=== PATIENT | female | born 1930 | race Caucasian/White ===

== ENCOUNTER 2017-01-16 12:42 | Emergency (ER) | payer SELFPAY ==
[~2017-01-16] VITALS: Ht 160 cm; Wt 65.9 kg
[2017-01-16 12:49] VITALS: BP 160/64
[2017-01-16] MEDS ORDERED: CALC-1009 PO (13:33)
[2017-01-16] MEDS ORDERED: CALC-1038 PO (13:33)
[2017-01-16] MEDS ORDERED: FLUC100T PO (13:33)
[2017-01-16] MEDS ORDERED: TEMO15C TP (13:33)
[2017-01-16] MEDS ORDERED: LOSA25TA21 PO (13:33)
[2017-01-16] MEDS ORDERED: DILT60 PO (13:33)
[2017-01-16] MEDS ORDERED: HYDR25TA PO (13:33)
== END 2017-01-16 15:01 | disposition left against medical advice (07) ==
LOC: EMS 12:45
DX: R11.2 Nausea with vomiting, unspecified (principal); M54.9 Dorsalgia, unspecified; I10 Essential (primary) hypertension; Z53.21 Procedure and treatment not carried out due to patient leaving prior to being seen by health care provider

== ENCOUNTER 2017-01-18 12:14 | Inpatient (IN) | payer MEDICARE, BC ==
[~2017-01-18] VITALS: Ht 160 cm; Wt 60.1 kg
[~2017-01-18 12:14] MED LIST: CALC-1009 PO; CALC-1038 PO; DILT60 PO; FLUC100T PO; HYDR25TA PO; LOSA25TA21 PO; TEMO15C TP
[2017-01-18] MEDS ORDERED: VITAD1000 PO (12:31)
[2017-01-18] MEDS ORDERED: OMEP20 PO (12:31)
[2017-01-18 12:43] LABS: GLUCOSE,POINT OF CARE 153 MG/DL (70-110)
[2017-01-18 15:23] LABS: ADD UA MICROSCOPIC YES; APPEARANCE,URINE CLOUDY (CLEAR); GLUCOSE, URINE (UA) NEGATIVE (NEGATIVE); KETONES,URINE NEGATIVE (NEGATIVE); LEUKOCYTE ESTERASE ,URINE SMALL (NEGATIVE); OCCULT BLOOD,URINE NEGATIVE (NEGATIVE); PROTEIN,URINE NEGATIVE (NEGATIVE)
[2017-01-18 15:39] LABS: RBC,URINE None Seen /HPF (0-2); SQUAMOUS EPITHELIAL CELL,UR Few /LPF (None Seen)
[2017-01-18 16:00] LABS: ANION GAP 6 mmol/L (8-16); CALCIUM, TOTAL 9.1 mg/dL (8.8-10.5); CARBON DIOXIDE 30 mmol/L (22-29); CHLORIDE 95 mmol/L (98-107); CREATININE 0.76 mg/dL (0.60-1.30); GLOMERULAR FILTR. RATE CALC > 60 mL/min (>60); POTASSIUM 3.8 mmol/L (3.5-5.1); SODIUM SERUM 131 mmol/L (136-145); UREA NITROGEN, BLOOD 13 mg/dL (7-18)
[2017-01-18 16:09] LABS: BASOPHILS % (AUTO) 0.4 % (0.0-2.0); EOSINOPHILS % (AUTO) 0.3 % (1.0-6.0); HEMATOCRIT 22.7 % (36-46); HEMOGLOBIN 7.7 g/dL (12.0-16.0); LYMPHOCYTES # (AUTO) 1.1 K/uL (1.0-4.8); LYMPHOCYTES % (AUTO) 12.2 % (22.0-44.0); MEAN CORPUSCULAR HEMOGLOBIN 30.8 pg (26.0-34.0); MEAN CORPUSCULAR HGB CONC 33.9 G/dL (31.0-37.0); MEAN CORPUSCULAR VOLUME 91 fL (80-100); MONOCYTES # (AUTO) 0.8 K/uL (0.1-1.0); MONOCYTES % (AUTO) 9.7 % (2.0-9.0); NEUTROPHILS # (AUTO) 6.8 K/uL (1.8-7.7); NEUTROPHILS % (AUTO) 77.4 % (40.0-70.0); RED CELL DISTRIBUTION WIDTH 17.6 % (11.5-14.5); WHITE BLOOD COUNT (AUTO) 8.7 K/uL (4.5-11.0)
[2017-01-18 16:13] LABS: ALANINE AMINOTRANSFERASE 63 U/L (12-78); ALBUMIN 4.1 g/dL (3.4-5.0); ASPARTATE AMINOTRANSFERASE 35 U/L (15-37); BILIRUBIN,TOTAL 1.4 mg/dL (0.1-1.0); CREATINE KINASE, TOTAL 33 U/L (26-192); INR 1.1 (0.9-1.1); PROTHROMBIN TIME 11.4 SEC (9.4-11.6)
[2017-01-18 16:15] LABS: PLATELET COUNT (AUTO) 1095 K/uL (150-450)
[2017-01-18 16:35] LABS: RBC MORPHOLOGY COMMENT ABNORMAL RBC MORPH
[2017-01-18 16:38] LABS: B-TYPE NATRIURETIC PEPTIDE 133 pg/mL (0-100)
[2017-01-18] MEDS ORDERED: SODIUM CHLORIDE 0.9% 1,000 ML IV ONE (17:30)
[2017-01-18] MEDS ORDERED: PANTOPRAZOLE SODIUM 40 MG/VIAL IVP ONE (17:30)
[2017-01-18] MEDS ORDERED: 0.9% SODIUM CHLORIDE 10 ML SYRINGE IVP PRN (17:30)
[2017-01-18] MEDS ORDERED: HYDROCODONE/ACETAMINOPHEN 5-325 MG TABLET PO PRN (17:30)
[2017-01-18] MEDS ORDERED: ACETAMINOPHEN 325 MG TABLET PO PRN ×2 (17:30→18:15)
[2017-01-18] MEDS ORDERED: ALBUTEROL SULFATE 2.5 MG/0.5 ML NEB SOLUTION NEB PRN (18:00)
[2017-01-18] MEDS ORDERED: BISACODYL 10 MG RECTAL RECTAL SUPPOSITORY PR PRN (18:00)
[2017-01-18] MEDS ORDERED: ZOLPIDEM TARTRATE 5 MG TABLET PO PRN (18:00)
[2017-01-18] MEDS ORDERED: IPRATROPIUM BROMIDE 0.5 MG/2.5 ML NEB SOLUTION NEB PRN (18:00)
[2017-01-18] MEDS ORDERED: MORPHINE SULFATE 2 MG/ML SYRINGE IVP PRN ×2 (18:15)
[2017-01-18 18:44] VITALS: BP 124/88
[2017-01-18] MEDS ORDERED: TIMO.5OS OU (19:40)
[2017-01-18] MEDS ORDERED: COMB5OS OU (19:40)
[2017-01-18] MEDS ORDERED: TRAVZOS OU (19:40)
[2017-01-18 19:58] VITALS: BP 158/59
[2017-01-18] MEDS ORDERED: TIMOLOL MALEATE 0.5% 5 ML OPHTHALMIC SOLUTION OU SCH ×2 (21:00)
[2017-01-18] MEDS ORDERED: BRIMONIDINE/TIMOLOL 0.2-0.5% 5 ML OPHTHALMIC SOLUTION OU SCH (21:00)
[2017-01-18] MEDS: HEPARIN SODIUM,PORCINE 5,000 UNITS/ML VIAL SQ SCH (21:46)
[2017-01-18] MEDS: TRAVOPROST-Z 0.004% 2.5 ML OPHTHALMIC SOLUTION OU SCH (21:46)
[2017-01-19] VITALS (7 sets, daily range): BP systolic 129–162; BP diastolic 50–88
[2017-01-19] MEDS ORDERED: PNEUMOCOCCAL VACCINE POLYVALENT 0.5 ML VIAL [PPSV23] IM ONE (05:15)
[2017-01-19 06:36] LABS: BASOPHILS % (AUTO) 0.4 % (0.0-2.0); EOSINOPHILS % (AUTO) 0.2 % (1.0-6.0); HEMATOCRIT 21.5 % (36-46); HEMOGLOBIN 7.4 g/dL (12.0-16.0); HEMOGLOBIN A1C 3.6 % (4.5-6.2); LYMPHOCYTES # (AUTO) 0.9 K/uL (1.0-4.8); LYMPHOCYTES % (AUTO) 11.8 % (22.0-44.0); MEAN CORPUSCULAR HEMOGLOBIN 32.1 pg (26.0-34.0); MEAN CORPUSCULAR HGB CONC 34.3 G/dL (31.0-37.0); MEAN CORPUSCULAR VOLUME 94 fL (80-100); MONOCYTES # (AUTO) 0.9 K/uL (0.1-1.0); MONOCYTES % (AUTO) 11.8 % (2.0-9.0); NEUTROPHILS # (AUTO) 5.5 K/uL (1.8-7.7); NEUTROPHILS % (AUTO) 75.8 % (40.0-70.0); RED CELL DISTRIBUTION WIDTH 17.7 % (11.5-14.5); WHITE BLOOD COUNT (AUTO) 7.3 K/uL (4.5-11.0)
[2017-01-19 06:58] LABS: PLATELET COUNT (AUTO) 976 K/uL (150-450)
[2017-01-19 07:18] LABS: ALANINE AMINOTRANSFERASE 51 U/L (12-78); ALBUMIN 3.7 g/dL (3.4-5.0); ANION GAP 9 mmol/L (8-16); ASPARTATE AMINOTRANSFERASE 28 U/L (15-37); BILIRUBIN,TOTAL 1.2 mg/dL (0.1-1.0); CALCIUM, TOTAL 8.4 mg/dL (8.8-10.5); CARBON DIOXIDE 27 mmol/L (22-29); CHLORIDE 101 mmol/L (98-107); CHOL/HDL RATIO 3.1 (3.9-5.7); CREATINE KINASE, TOTAL 25 U/L (26-192); GLOMERULAR FILTR. RATE CALC > 60 mL/min (>60); POTASSIUM 3.6 mmol/L (3.5-5.1); SODIUM SERUM 137 mmol/L (136-145); TOTAL PROTEIN, SERUM 5.5 g/dL (6.4-8.2); UREA NITROGEN, BLOOD 10 mg/dL (7-18)
[2017-01-19] MEDS: HEPARIN SODIUM,PORCINE 5,000 UNITS/ML VIAL SQ SCH ×2 (08:19→20:44)
[2017-01-19] MEDS: PANTOPRAZOLE SODIUM 40 MG DR TABLET PO SCH (08:19)
[2017-01-19] MEDS: CALCIUM OYSTER SHELL 500 MG TABLET PO SCH (08:19)
[2017-01-19] MEDS: CHOLECALCIFEROL (VIT D3) 1,000 UNITS TABLET PO SCH (08:20)
[2017-01-19] MEDS: TRAVOPROST-Z 0.004% 2.5 ML OPHTHALMIC SOLUTION OU SCH ×2 (08:20→20:44)
[2017-01-19] MEDS: LOSARTAN POTASSIUM 25 MG TABLET PO SCH (08:20)
[2017-01-19 09:36] LABS: RBC MORPHOLOGY COMMENT ABNORMAL RBC MORPH
[2017-01-19 09:40] LABS: OSMOLALITY 277 mOS/kg (270-310)
[2017-01-19 10:33] LABS: PROCALCITONIN (PCT) 0.08 ng/mL (<0.50)
[2017-01-19] MEDS: DILTIAZEM HCL 60 MG TABLET PO SCH ×2 (17:02→20:47)
[2017-01-19] MEDS: TIMOLOL MALEATE 0.5% 5 ML OPHTHALMIC SOLUTION OU SCH (17:03)
[2017-01-19] MEDS: MENTHOL/CAMPHOR/DIMETH/PHENOL 10 GM OINTMENT TP PRN (17:04)
[2017-01-19] MEDS: BRIMONIDINE/TIMOLOL 0.2-0.5% 5 ML OPHTHALMIC SOLUTION OU SCH (17:04)
[2017-01-19 18:06] LABS: HEMATOCRIT 22.4 % (36-46); HEMOGLOBIN 7.6 g/dL (12.0-16.0)
[2017-01-20 04:45] VITALS: BP 155/78
[2017-01-20 07:16] VITALS: BP 161/67
[2017-01-20] MEDS: PANTOPRAZOLE SODIUM 40 MG DR TABLET PO SCH (08:20)
[2017-01-20] MEDS: LOSARTAN POTASSIUM 25 MG TABLET PO SCH (08:20)
[2017-01-20] MEDS: CALCIUM OYSTER SHELL 500 MG TABLET PO SCH (08:20)
[2017-01-20] MEDS: CHOLECALCIFEROL (VIT D3) 1,000 UNITS TABLET PO SCH (08:20)
[2017-01-20] MEDS: BRIMONIDINE/TIMOLOL 0.2-0.5% 5 ML OPHTHALMIC SOLUTION OU SCH ×2 (08:21→17:46)
[2017-01-20] MEDS: HEPARIN SODIUM,PORCINE 5,000 UNITS/ML VIAL SQ SCH (08:21)
[2017-01-20] MEDS: TIMOLOL MALEATE 0.5% 5 ML OPHTHALMIC SOLUTION OU SCH ×2 (08:22→17:46)
[2017-01-20] MEDS: DILTIAZEM HCL 60 MG TABLET PO SCH ×4 (08:23→23:23)
[2017-01-20 09:21] LABS: EOSINOPHILS # (AUTO) 0.02 K/uL (0.00-0.70); EOSINOPHILS % (AUTO) 0.21 % (1.0-6.0); HEMATOCRIT 24.2 % (36-46); LYMPHOCYTES # (AUTO) 0.7 K/uL (1.0-4.8); MEAN CORPUSCULAR HEMOGLOBIN 31.7 pg (26.0-34.0); MEAN CORPUSCULAR HGB CONC 33.2 G/dL (31.0-37.0); MEAN CORPUSCULAR VOLUME 95 fL (80-100); MONOCYTES # (AUTO) 0.7 K/uL (0.1-1.0); MONOCYTES % (AUTO) 7.9 % (2.0-9.0); NEUTROPHILS # (AUTO) 7.1 K/uL (1.8-7.7); RED BLOOD CELL COUNT(AUTO) 2.54 MIL/uL (4.00-5.20); RED CELL DISTRIBUTION WIDTH 18.8 % (11.5-14.5); WHITE BLOOD COUNT (AUTO) 8.5 K/uL (4.5-11.0)
[2017-01-20 09:24] LABS: PLATELET COUNT (AUTO) 1024 K/uL (150-450)
[2017-01-20 09:26] LABS: ANION GAP 9 mmol/L (8-16); CALCIUM, TOTAL 8.3 mg/dL (8.8-10.5); CARBON DIOXIDE 27 mmol/L (22-29); CHLORIDE 99 mmol/L (98-107); CREATININE 0.75 mg/dL (0.60-1.30); GLOMERULAR FILTR. RATE CALC > 60 mL/min (>60); POTASSIUM 4.2 mmol/L (3.5-5.1); SODIUM SERUM 135 mmol/L (136-145); UREA NITROGEN, BLOOD 9 mg/dL (7-18)
[2017-01-20 09:43] LABS: RBC MORPHOLOGY COMMENT ABNORMAL RBC MORPH
[2017-01-20] MEDS: MENTHOL/CAMPHOR/DIMETH/PHENOL 10 GM OINTMENT TP PRN ×2 (11:11→17:47)
[2017-01-20] MEDS ORDERED: DILT240C93 PO (11:49)
[2017-01-20 12:07] VITALS: BP 151/66
[2017-01-20 15:28] VITALS: BP 159/70
[2017-01-20 19:58] VITALS: BP 111/36
[2017-01-20] MEDS: TRAVOPROST-Z 0.004% 2.5 ML OPHTHALMIC SOLUTION OU SCH (22:00)
[2017-01-20 23:21] VITALS: BP 179/67
[2017-01-21] VITALS (9 sets, daily range): BP systolic 114–193; BP diastolic 52–71
[2017-01-21] MEDS ORDERED: ENALAPRILAT DIHYDRATE 1.25 MG/ML VIAL IVP ONE (08:45)
[2017-01-21] MEDS ORDERED: SODIUM CHLORIDE 0.9% 1,000 ML IV ONE ×2 (09:00→09:56)
[2017-01-21] MEDS: LOSARTAN POTASSIUM 50 MG TABLET PO SCH (09:00)
[2017-01-21 09:17] LABS: BASOPHILS % (AUTO) 0.2 % (0.0-2.0); EOSINOPHILS % (AUTO) 0.2 % (1.0-6.0); HEMATOCRIT 23.3 % (36-46); HEMOGLOBIN 7.9 g/dL (12.0-16.0); LYMPHOCYTES # (AUTO) 0.6 K/uL (1.0-4.8); LYMPHOCYTES % (AUTO) 8.2 % (22.0-44.0); MEAN CORPUSCULAR HEMOGLOBIN 31.6 pg (26.0-34.0); MEAN CORPUSCULAR HGB CONC 33.8 G/dL (31.0-37.0); MEAN CORPUSCULAR VOLUME 94 fL (80-100); MONOCYTES # (AUTO) 0.8 K/uL (0.1-1.0); MONOCYTES % (AUTO) 10.9 % (2.0-9.0); NEUTROPHILS # (AUTO) 5.9 K/uL (1.8-7.7); NEUTROPHILS % (AUTO) 80.5 % (40.0-70.0); RED BLOOD CELL COUNT(AUTO) 2.49 MIL/uL (4.00-5.20); RED CELL DISTRIBUTION WIDTH 18.8 % (11.5-14.5); WHITE BLOOD COUNT (AUTO) 7.4 K/uL (4.5-11.0)
[2017-01-21 09:23] LABS: PLATELET COUNT (AUTO) 892 K/uL (150-450)
[2017-01-21] MEDS: TRAVOPROST-Z 0.004% 2.5 ML OPHTHALMIC SOLUTION OU SCH ×2 (11:09→11:14)
[2017-01-21] MEDS: CHOLECALCIFEROL (VIT D3) 1,000 UNITS TABLET PO SCH (11:09)
[2017-01-21] MEDS: CALCIUM OYSTER SHELL 500 MG TABLET PO SCH (11:09)
[2017-01-21] MEDS: BRIMONIDINE/TIMOLOL 0.2-0.5% 5 ML OPHTHALMIC SOLUTION OU SCH ×2 (11:09→16:58)
[2017-01-21] MEDS: TIMOLOL MALEATE 0.5% 5 ML OPHTHALMIC SOLUTION OU SCH ×2 (11:09→16:58)
[2017-01-21] MEDS: PANTOPRAZOLE SODIUM 40 MG DR TABLET PO SCH (11:10)
[2017-01-21] MEDS: AmLODIPine BESYLATE 5 MG TABLET PO SCH (11:10)
[2017-01-21] MEDS: DILTIAZEM HCL 60 MG TABLET PO SCH ×3 (11:11→20:40)
[2017-01-22 04:30] VITALS: BP 156/69
[2017-01-22 07:02] LABS: ANION GAP 6 mmol/L (8-16); CALCIUM, TOTAL 8.2 mg/dL (8.8-10.5); CARBON DIOXIDE 28 mmol/L (22-29); CHLORIDE 102 mmol/L (98-107); CREATININE 0.54 mg/dL (0.60-1.30); GLOMERULAR FILTR. RATE CALC > 60 mL/min (>60); POTASSIUM 4.1 mmol/L (3.5-5.1); SODIUM SERUM 136 mmol/L (136-145); UREA NITROGEN, BLOOD 12 mg/dL (7-18)
[2017-01-22 07:21] LABS: BASOPHILS # (AUTO) 0.02 K/uL (0.00-0.20); BASOPHILS % (AUTO) 0.3 % (0.0-2.0); EOSINOPHILS # (AUTO) 0.01 K/uL (0.00-0.70); EOSINOPHILS % (AUTO) 0.18 % (1.0-6.0); HEMATOCRIT 22.2 % (36-46); HEMOGLOBIN 7.7 g/dL (12.0-16.0); LYMPHOCYTES # (AUTO) 0.7 K/uL (1.0-4.8); LYMPHOCYTES % (AUTO) 9.9 % (22.0-44.0); MEAN CORPUSCULAR HEMOGLOBIN 33.5 pg (26.0-34.0); MEAN CORPUSCULAR HGB CONC 34.6 G/dL (31.0-37.0); MEAN CORPUSCULAR VOLUME 97 fL (80-100); MONOCYTES # (AUTO) 0.8 K/uL (0.1-1.0); MONOCYTES % (AUTO) 10.1 % (2.0-9.0); NEUTROPHILS # (AUTO) 5.9 K/uL (1.8-7.7); NEUTROPHILS % (AUTO) 79.6 % (40.0-70.0); RED CELL DISTRIBUTION WIDTH 19.8 % (11.5-14.5); WHITE BLOOD COUNT (AUTO) 7.4 K/uL (4.5-11.0)
[2017-01-22 07:27] LABS: PLATELET COUNT (AUTO) 855 K/uL (150-450); RBC MORPHOLOGY COMMENT ABNORMAL RBC MORPH
[2017-01-22 07:43] VITALS: BP 143/73
[2017-01-22] MEDS: CHOLECALCIFEROL (VIT D3) 1,000 UNITS TABLET PO SCH (08:30)
[2017-01-22] MEDS: AmLODIPine BESYLATE 5 MG TABLET PO SCH (08:30)
[2017-01-22] MEDS: CALCIUM OYSTER SHELL 500 MG TABLET PO SCH (08:30)
[2017-01-22] MEDS: LOSARTAN POTASSIUM 50 MG TABLET PO SCH (08:31)
[2017-01-22] MEDS: PANTOPRAZOLE SODIUM 40 MG DR TABLET PO SCH (08:31)
[2017-01-22 10:45] VITALS: BP 163/74
[2017-01-22] MEDS: BRIMONIDINE/TIMOLOL 0.2-0.5% 5 ML OPHTHALMIC SOLUTION OU SCH (10:45)
[2017-01-22] MEDS: TIMOLOL MALEATE 0.5% 5 ML OPHTHALMIC SOLUTION OU SCH (10:45)
[2017-01-22] MEDS: DILTIAZEM HCL 60 MG TABLET PO SCH (10:45)
[2017-01-22] MEDS ORDERED: FERR-89 PO (13:08)
== END 2017-01-22 16:00 | disposition home health service (06) | DRG 206 ==
LOC: EMS 12:15 → 5N 18:01
PROVIDERS: ADMIT Internal Medicine Geriatric Medicine; ATTEND Internal Medicine Geriatric Medicine
PROC: 0DB68ZX Excision of Stomach, Via Natural or Artificial Opening Endoscopic, Diagnostic (ICD-10-PCS; principal; 2017-01-21 10:00)
DX: S22.32XA Fracture of one rib, left side, initial encounter for closed fracture (principal); N39.0 Urinary tract infection, site not specified; E87.1 Hypo-osmolality and hyponatremia; D64.9 Anemia, unspecified; I10 Essential (primary) hypertension; R79.89 Other specified abnormal findings of blood chemistry; K21.9 Gastro-esophageal reflux disease without esophagitis; E55.9 Vitamin D deficiency, unspecified; R55 Syncope and collapse; K59.00 Constipation, unspecified; H40.9 Unspecified glaucoma; R19.5 Other fecal abnormalities; Z66 Do not resuscitate; E78.5 Hyperlipidemia, unspecified; K44.9 Diaphragmatic hernia without obstruction or gangrene; K29.00 Acute gastritis without bleeding; Z85.72 Personal history of non-Hodgkin lymphomas; Z92.21 Personal history of antineoplastic chemotherapy; Z79.899 Other long term (current) drug therapy; Z88.1 Allergy status to other antibiotic agents; W19.XXXA Unspecified fall, initial encounter; Y93.89 Activity, other specified; Y92.89 Other specified places as the place of occurrence of the external cause; Y99.8 Other external cause status
CPT/HCPCS: 71101; 82270; 82271; 82306; 82607; 82746; 82962; 83036; 83540; 83550; 83735; 83930; 83935; 84145; 84300; 84439; 84443; 85014; 85018; 86850; 86900; 86901; 87086; 87147; 88305; 88312; 93005; 93306; 96374; 99285; C9113; J1644; J3490; J7030

== ENCOUNTER 2017-02-25 14:25 | Inpatient (IN) | payer MEDICARE, BC ==
[~2017-02-25] VITALS: Ht 160 cm; Wt 61.2 kg
[~2017-02-25 14:25] MED LIST changes: +COMB5OS OU; +DILT240C93 PO; -DILT60 PO; +FERR-89 PO; -FLUC100T PO; -HYDR25TA PO; +OMEP20 PO; +TIMO.5OS OU; +TRAVZOS OU; +VITAD1000 PO
[2017-02-25] MEDS ORDERED: PRED1 PO (14:35)
[2017-02-25 15:13] LABS: RETICULOCYTE % (AUTO) 15.1 % (0.5-2.3)
[2017-02-25 15:16] LABS: MEAN CORPUSCULAR HEMOGLOBIN 35.4 pg (26.0-34.0); MEAN CORPUSCULAR HGB CONC 34.7 G/dL (31.0-37.0); MEAN CORPUSCULAR VOLUME 102 fL (80-100); RED BLOOD CELL COUNT(AUTO) 1.92 MIL/uL (4.00-5.20); RED CELL DISTRIBUTION WIDTH 21.3 % (11.5-14.5)
[2017-02-25 15:20] LABS: HEMATOCRIT 19.6 % (36-46); HEMOGLOBIN 6.8 g/dL (12.0-16.0); PLATELET COUNT (AUTO) 934 K/uL (150-450)
[2017-02-25 15:23] LABS: ANION GAP 10 mmol/L (8-16); CALCIUM, TOTAL 7.7 mg/dL (8.8-10.5); CARBON DIOXIDE 24 mmol/L (22-29); CHLORIDE 95 mmol/L (98-107); CREATININE 0.71 mg/dL (0.60-1.30); GLOMERULAR FILTR. RATE CALC > 60 mL/min (>60); GLUCOSE,RANDOM 180 mg/dL (70-110); POTASSIUM 4.3 mmol/L (3.5-5.1); SODIUM SERUM 129 mmol/L (136-145); UREA NITROGEN, BLOOD 19 mg/dL (7-18)
[2017-02-25 15:27] LABS: ALANINE AMINOTRANSFERASE 59 U/L (12-78); ALBUMIN 3.7 g/dL (3.4-5.0); ALKALINE PHOSPHATASE 71 U/L (46-116); ASPARTATE AMINOTRANSFERASE 35 U/L (15-37); BILIRUBIN,TOTAL 4.9 mg/dL (0.1-1.0); TOTAL PROTEIN, SERUM 5.9 g/dL (6.4-8.2)
[2017-02-25 15:31] LABS: INR 1.1 (0.9-1.1); PROTHROMBIN TIME 12.1 SEC (9.4-11.6)
[2017-02-25 15:51] LABS: B-TYPE NATRIURETIC PEPTIDE 541 pg/mL (0-100)
[2017-02-25] MEDS ORDERED: FUROSEMIDE 40 MG/4 ML VIAL IVP ONE (16:00)
[2017-02-25 16:34] LABS: INFLUENZA TYPE A NEGATIVE FOR TYPE A (NEGATIVE); INFLUENZA TYPE B NEGATIVE FOR TYPE B (NEGATIVE)
[2017-02-25 16:49] LABS: BAND NEUTROPHILS % (MANUAL) 7 % (1-5); LYMPHOCYTES % (MANUAL) 3 % (22-44); SEGMENTED NEUTROPHILS % 90 % (40-70)
[2017-02-25] MEDS ORDERED: 0.9% SODIUM CHLORIDE 10 ML SYRINGE IVP PRN (17:15)
[2017-02-25] MEDS ORDERED: ACETAMINOPHEN 325 MG TABLET PO PRN (17:15)
[2017-02-25] MEDS ORDERED: ONDANSETRON HCL 4 MG/2 ML VIAL IVP PRN (17:15)
[2017-02-25 17:29] LABS: APPEARANCE,URINE CLOUDY (CLEAR); BILIRUBIN,URINE NEGATIVE (NEGATIVE); GLUCOSE, URINE (UA) NEGATIVE (NEGATIVE); KETONES,URINE NEGATIVE (NEGATIVE); LEUKOCYTE ESTERASE ,URINE NEGATIVE (NEGATIVE); NITRATE,URINE NEGATIVE (NEGATIVE); OCCULT BLOOD,URINE NEGATIVE (NEGATIVE); PROTEIN,URINE TRACE (NEGATIVE); UROBILINOGEN,URINE >=8.0 mg/dL (<=1.0)
[2017-02-25 17:56] LABS: RBC,URINE None Seen /HPF (0-2)
[2017-02-25 17:58] LABS: BACTERIA,URINE Few /HPF (None Seen); SQUAMOUS EPITHELIAL CELL,UR Rare /LPF (None Seen); WBC,URINE 0-2 /HPF (0-5)
[2017-02-25 17:59] LABS: TRANSITIONAL EPI CELLS,URINE Rare /LPF (None Seen)
[2017-02-25 19:08] VITALS: BP 164/74
[2017-02-25] MEDS ORDERED: CLOBETASOL 0.05% 15 GM CREAM TP PRN (19:15)
[2017-02-25] MEDS ORDERED: MAGNESIUM HYDROXIDE SUSPENSION 30 ML UDCUP PO PRN (19:30)
[2017-02-25 19:35] VITALS: BP 152/56
[2017-02-25] MEDS ORDERED: SODIUM CHLORIDE 0.9% 500 ML IV ONE (20:05)
[2017-02-25] MEDS: BRIMONIDINE/TIMOLOL 0.2-0.5% 5 ML OPHTHALMIC SOLUTION OU SCH (20:36)
[2017-02-25] MEDS: TRAVOPROST-Z 0.004% 2.5 ML OPHTHALMIC SOLUTION OU SCH (20:36)
[2017-02-25] MEDS: TIMOLOL MALEATE 0.5% 5 ML OPHTHALMIC SOLUTION OU SCH (20:36)
[2017-02-25] MEDS: CefTRIAXone 1 GM/DEXTROSE 50 ML IV SCH (21:49)
[2017-02-25] MEDS: AZITHROMYCIN 500 MG/NS 250 ML IV SCH (22:49)
[2017-02-25 23:33] VITALS: BP 148/80
[2017-02-26] VITALS (14 sets, daily range): BP systolic 141–171; BP diastolic 50–96
[2017-02-26] MEDS: DILTIAZEM HCL CD 240 MG ER CAPSULE PO SCH ×2 (05:11→05:14)
[2017-02-26] MEDS: ALBUTEROL SULFATE 2.5 MG/0.5 ML NEB SOLUTION NEB PRN ×2 (05:43→09:58)
[2017-02-26] MEDS: IPRATROPIUM BROMIDE 0.5 MG/2.5 ML NEB SOLUTION NEB PRN ×2 (05:43→09:58)
[2017-02-26 06:36] LABS: EOSINOPHILS # (AUTO) 0.01 K/uL (0.00-0.70); EOSINOPHILS % (AUTO) 0.05 % (1.0-6.0); HEMOGLOBIN 8.1 g/dL (12.0-16.0); LYMPHOCYTES # (AUTO) 0.4 K/uL (1.0-4.8); LYMPHOCYTES % (AUTO) 2.9 % (22.0-44.0); MEAN CORPUSCULAR HEMOGLOBIN 35.5 pg (26.0-34.0); MEAN CORPUSCULAR HGB CONC 33.8 G/dL (31.0-37.0); MEAN CORPUSCULAR VOLUME 105 fL (80-100); MONOCYTES # (AUTO) 1.3 K/uL (0.1-1.0); MONOCYTES % (AUTO) 10.7 % (2.0-9.0); NEUTROPHILS # (AUTO) 10.2 K/uL (1.8-7.7); RED BLOOD CELL COUNT(AUTO) 2.29 MIL/uL (4.00-5.20); RED CELL DISTRIBUTION WIDTH 19.9 % (11.5-14.5)
[2017-02-26 07:03] LABS: NEUTROPHILS % (AUTO) 86.4 % (40.0-70.0); PLATELET COUNT (AUTO) 936 K/uL (150-450)
[2017-02-26 07:21] LABS: ANION GAP 11 mmol/L (8-16); CALCIUM, TOTAL 7.6 mg/dL (8.8-10.5); CARBON DIOXIDE 25 mmol/L (22-29); CHLORIDE 97 mmol/L (98-107); CHOL/HDL RATIO 2.4 (3.9-5.7); CHOLESTEROL 106 mg/dL (131-200); CREATINE KINASE, TOTAL 20 U/L (26-192); CREATININE 0.69 mg/dL (0.60-1.30); GLOMERULAR FILTR. RATE CALC > 60 mL/min (>60); GLUCOSE,RANDOM 111 mg/dL (70-110); HDL CHOLESTEROL 44 mg/dL (40-60); LDL CHOL (CALC.) 46 mg/dL (0-130); POTASSIUM 3.3 mmol/L (3.5-5.1); SODIUM SERUM 133 mmol/L (136-145); THYROID STIMULATING HORMONE 0.36 uIU/mL (0.36-3.74); TRIGLYCERIDES 78 mg/dL (15-150); UREA NITROGEN, BLOOD 17 mg/dL (7-18)
[2017-02-26] MEDS ORDERED: FERROUS SULFATE 325 MG EC TABLET PO SCH (08:00)
[2017-02-26] MEDS: TIMOLOL MALEATE 0.5% 5 ML OPHTHALMIC SOLUTION OU SCH ×2 (08:03→20:10)
[2017-02-26] MEDS: TRAVOPROST-Z 0.004% 2.5 ML OPHTHALMIC SOLUTION OU SCH ×2 (08:03→20:10)
[2017-02-26] MEDS: CALCIUM OYSTER SHELL 500 MG TABLET PO SCH (08:04)
[2017-02-26] MEDS: LOSARTAN POTASSIUM 25 MG TABLET PO SCH (08:04)
[2017-02-26] MEDS: PANTOPRAZOLE SODIUM 40 MG DR TABLET PO SCH (08:04)
[2017-02-26] MEDS: CHOLECALCIFEROL (VIT D3) 1,000 UNITS TABLET PO SCH (08:05)
[2017-02-26] MEDS ORDERED: POTASSIUM CHLORIDE 20 MEQ ER TABLET PO ONE (08:30)
[2017-02-26] MEDS ORDERED: CLOBETASOL 0.05% 15 GM CREAM TP SCH (09:00)
[2017-02-26 09:07] LABS: FOLATE SERUM 19.7 ng/mL (5.4-)
[2017-02-26] MEDS: PredniSONE 20 MG TABLET PO SCH (09:09)
[2017-02-26] MEDS ORDERED: POTASSIUM CHLORIDE 10% 40 MEQ/30 ML LIQUID UDCUP PO ONE (11:15)
[2017-02-26] MEDS: FUROSEMIDE 20 MG TABLET PO SCH (11:36)
[2017-02-26 13:09] LABS: HEMOGLOBIN A1C < 3.6 % (4.5-6.2)
[2017-02-26] MEDS ORDERED: IOVERSOL 350 MG/ML 100 ML VIAL ONE (13:32)
[2017-02-26] MEDS: BENZONATATE 100 MG CAPSULE PO SCH ×2 (14:09→20:10)
[2017-02-26 14:38] LABS: PROTEIN,URINE RANDOM 64 mg/dL (0-11.9); SODIUM,URINE RANDOM 56 mmol/l (20-110); UREA NITROGEN,URINE RANDOM 731 mg/dL (350-1000)
[2017-02-26 14:41] LABS: OSMOLALITY,URINE 456 mOS/kg (50-1200)
[2017-02-26] MEDS: GuaiFENesin [SUGAR-FREE] 200 MG/10 ML SOLUTION UDCUP PO SCH ×2 (15:21→20:10)
[2017-02-26] MEDS ORDERED: HEPARIN SODIUM,PORCINE 5,000 UNITS/ML VIAL IVP PRN (16:00)
[2017-02-26] MEDS: HEPARIN SODIUM 25000 UNITS/D5W 250 ML IV PRN ×2 (16:30→23:34)
[2017-02-26 16:40] LABS: EOSINOPHILS % (AUTO) 0 % (1.0-6.0); HEMATOCRIT 23.1 % (36-46); HEMOGLOBIN 7.9 g/dL (12.0-16.0); LYMPHOCYTES # (AUTO) 0.2 K/uL (1.0-4.8); LYMPHOCYTES % (AUTO) 1.4 % (22.0-44.0); MEAN CORPUSCULAR HEMOGLOBIN 37.2 pg (26.0-34.0); MEAN CORPUSCULAR HGB CONC 34.3 G/dL (31.0-37.0); MEAN CORPUSCULAR VOLUME 109 fL (80-100); MONOCYTES # (AUTO) 0.8 K/uL (0.1-1.0); MONOCYTES % (AUTO) 6.7 % (2.0-9.0); NEUTROPHILS # (AUTO) 10.5 K/uL (1.8-7.7); RED BLOOD CELL COUNT(AUTO) 2.13 MIL/uL (4.00-5.20); RED CELL DISTRIBUTION WIDTH 19.8 % (11.5-14.5)
[2017-02-26 16:41] LABS: INR 1.2 (0.9-1.1); PROTHROMBIN TIME 12.5 SEC (9.4-11.6)
[2017-02-26 16:48] LABS: PLATELET COUNT (AUTO) 867 K/uL (150-450)
[2017-02-26] MEDS: BRIMONIDINE/TIMOLOL 0.2-0.5% 5 ML OPHTHALMIC SOLUTION OU SCH (20:10)
[2017-02-26] MEDS: CefTRIAXone 1 GM/DEXTROSE 50 ML IV SCH (20:10)
[2017-02-26] MEDS: AZITHROMYCIN 500 MG/NS 250 ML IV SCH (21:27)
[2017-02-26] MEDS: HEPARIN SODIUM,PORCINE 5,000 UNITS/ML VIAL IVP PRN (23:31)
[2017-02-27] VITALS (7 sets, daily range): BP systolic 136–156; BP diastolic 58–86
[2017-02-27] MEDS ORDERED: SODIUM CHLORIDE 0.9% 250 ML IV ONE (03:12)
[2017-02-27 06:23] LABS: ANION GAP 6 mmol/L (8-16); CALCIUM, TOTAL 7.7 mg/dL (8.8-10.5); CARBON DIOXIDE 29 mmol/L (22-29); CHLORIDE 101 mmol/L (98-107); CREATININE 0.63 mg/dL (0.60-1.30); GLOMERULAR FILTR. RATE CALC > 60 mL/min (>60); GLUCOSE,RANDOM 113 mg/dL (70-110); POTASSIUM 3.7 mmol/L (3.5-5.1); SODIUM SERUM 136 mmol/L (136-145); UREA NITROGEN, BLOOD 21 mg/dL (7-18)
[2017-02-27 07:01] LABS: D-DIMER 1.42 mg/L FEU (0.00-0.50); HEMOGLOBIN 7.2 g/dL (12.0-16.0); MEAN CORPUSCULAR HEMOGLOBIN 36.7 pg (26.0-34.0); MEAN CORPUSCULAR HGB CONC 34.5 G/dL (31.0-37.0); MEAN CORPUSCULAR VOLUME 107 fL (80-100); RED BLOOD CELL COUNT(AUTO) 1.95 MIL/uL (4.00-5.20); RED CELL DISTRIBUTION WIDTH 20.6 % (11.5-14.5)
[2017-02-27 07:11] LABS: HEMATOCRIT 20.8 % (36-46); PLATELET COUNT (AUTO) 781 K/uL (150-450)
[2017-02-27 07:35] LABS: B-TYPE NATRIURETIC PEPTIDE 269 pg/mL (0-100)
[2017-02-27] MEDS: HEPARIN SODIUM,PORCINE 5,000 UNITS/ML VIAL IVP PRN ×2 (07:37→14:19)
[2017-02-27] MEDS: HEPARIN SODIUM 25000 UNITS/D5W 250 ML IV PRN ×3 (07:38→14:22)
[2017-02-27] MEDS: OXYGEN THERAPY IH SCH ×2 (08:47→20:24)
[2017-02-27] MEDS: TIMOLOL MALEATE 0.5% 5 ML OPHTHALMIC SOLUTION OU SCH ×2 (08:49→20:38)
[2017-02-27] MEDS: DILTIAZEM HCL CD 240 MG ER CAPSULE PO SCH (08:49)
[2017-02-27] MEDS: TRAVOPROST-Z 0.004% 2.5 ML OPHTHALMIC SOLUTION OU SCH ×2 (08:49→20:37)
[2017-02-27] MEDS: PANTOPRAZOLE SODIUM 40 MG DR TABLET PO SCH (08:50)
[2017-02-27] MEDS: FUROSEMIDE 20 MG TABLET PO SCH (08:50)
[2017-02-27] MEDS: PredniSONE 20 MG TABLET PO SCH (08:50)
[2017-02-27] MEDS: CALCIUM OYSTER SHELL 500 MG TABLET PO SCH (08:50)
[2017-02-27] MEDS: LOSARTAN POTASSIUM 25 MG TABLET PO SCH (08:50)
[2017-02-27] MEDS: GuaiFENesin [SUGAR-FREE] 200 MG/10 ML SOLUTION UDCUP PO SCH ×3 (08:51→20:36)
[2017-02-27] MEDS: BENZONATATE 100 MG CAPSULE PO SCH ×3 (08:51→20:36)
[2017-02-27] MEDS: CHOLECALCIFEROL (VIT D3) 1,000 UNITS TABLET PO SCH (08:51)
[2017-02-27 09:31] LABS: BAND NEUTROPHILS % (MANUAL) 16 % (1-5); LYMPHOCYTES % (MANUAL) 3 % (22-44); MONOCYTES % (MANUAL) 5 % (2-9); SEGMENTED NEUTROPHILS % 76 % (40-70)
[2017-02-27] MEDS ORDERED: POTASSIUM CHLORIDE 10% 40 MEQ/30 ML LIQUID UDCUP PO ONE (10:45)
[2017-02-27] MEDS ORDERED: PRED20 PO (10:49)
[2017-02-27] MEDS: CefTRIAXone 1 GM/DEXTROSE 50 ML IV SCH (20:24)
[2017-02-27] MEDS: BRIMONIDINE/TIMOLOL 0.2-0.5% 5 ML OPHTHALMIC SOLUTION OU SCH (20:38)
[2017-02-27] MEDS: AZITHROMYCIN 500 MG/NS 250 ML IV SCH (22:02)
[2017-02-27] MEDS: ZOLPIDEM TARTRATE 5 MG TABLET PO PRN (23:26)
[2017-02-28 05:47] VITALS: BP 150/60
[2017-02-28 06:41] LABS: EOSINOPHILS % (AUTO) 0.1 % (1.0-6.0); HEMATOCRIT 21.5 % (36-46); HEMOGLOBIN 7.2 g/dL (12.0-16.0); LYMPHOCYTES # (AUTO) 0.6 K/uL (1.0-4.8); LYMPHOCYTES % (AUTO) 4.5 % (22.0-44.0); MEAN CORPUSCULAR HGB CONC 33.6 G/dL (31.0-37.0); MEAN CORPUSCULAR VOLUME 104 fL (80-100); MONOCYTES # (AUTO) 1.1 K/uL (0.1-1.0); MONOCYTES % (AUTO) 8.4 % (2.0-9.0); NEUTROPHILS # (AUTO) 11.5 K/uL (1.8-7.7); RED BLOOD CELL COUNT(AUTO) 2.07 MIL/uL (4.00-5.20); RED CELL DISTRIBUTION WIDTH 19.9 % (11.5-14.5); RETICULOCYTE % (AUTO) 6.1 % (0.5-2.3)
[2017-02-28 06:55] LABS: ALANINE AMINOTRANSFERASE 63 U/L (12-78); ALBUMIN 3.1 g/dL (3.4-5.0); ALKALINE PHOSPHATASE 64 U/L (46-116); ANION GAP 5 mmol/L (8-16); ASPARTATE AMINOTRANSFERASE 25 U/L (15-37); BILIRUBIN,TOTAL 1.5 mg/dL (0.1-1.0); CALCIUM, TOTAL 7.6 mg/dL (8.8-10.5); CARBON DIOXIDE 29 mmol/L (22-29); CHLORIDE 103 mmol/L (98-107); CREATININE 0.63 mg/dL (0.60-1.30); GLOMERULAR FILTR. RATE CALC > 60 mL/min (>60); GLUCOSE,RANDOM 104 mg/dL (70-110); POTASSIUM 4.3 mmol/L (3.5-5.1); SODIUM SERUM 137 mmol/L (136-145); TOTAL PROTEIN, SERUM 5.6 g/dL (6.4-8.2); UREA NITROGEN, BLOOD 19 mg/dL (7-18)
[2017-02-28 07:13] VITALS: BP 145/57
[2017-02-28 07:22] LABS: PLATELET COUNT (AUTO) 851 K/uL (150-450)
[2017-02-28] MEDS: HEPARIN SODIUM 25000 UNITS/D5W 250 ML IV PRN ×2 (07:33→17:15)
[2017-02-28] MEDS: OXYGEN THERAPY IH SCH ×2 (08:39→20:55)
[2017-02-28] MEDS: PredniSONE 20 MG TABLET PO SCH (08:49)
[2017-02-28] MEDS: BENZONATATE 100 MG CAPSULE PO SCH ×3 (08:50→20:56)
[2017-02-28] MEDS: CHOLECALCIFEROL (VIT D3) 1,000 UNITS TABLET PO SCH (08:50)
[2017-02-28] MEDS: PANTOPRAZOLE SODIUM 40 MG DR TABLET PO SCH (08:51)
[2017-02-28] MEDS: FUROSEMIDE 20 MG TABLET PO SCH (08:51)
[2017-02-28] MEDS: TIMOLOL MALEATE 0.5% 5 ML OPHTHALMIC SOLUTION OU SCH ×2 (08:52→20:57)
[2017-02-28] MEDS: GuaiFENesin [SUGAR-FREE] 200 MG/10 ML SOLUTION UDCUP PO SCH ×3 (08:52→20:56)
[2017-02-28] MEDS: CALCIUM OYSTER SHELL 500 MG TABLET PO SCH (08:54)
[2017-02-28] MEDS: DILTIAZEM HCL CD 240 MG ER CAPSULE PO SCH (08:54)
[2017-02-28] MEDS: LOSARTAN POTASSIUM 25 MG TABLET PO SCH (08:55)
[2017-02-28] MEDS: TRAVOPROST-Z 0.004% 2.5 ML OPHTHALMIC SOLUTION OU SCH ×2 (09:00→20:57)
[2017-02-28 10:25] LABS: PLATELET MORPHOLOGY COMMENT GIANT PLTS PRESENT
[2017-02-28 11:02] VITALS: BP 153/73
[2017-02-28] MEDS: ACETAMINOPHEN 325 MG TABLET PO PRN (12:22)
[2017-02-28] MEDS: PROMETHAZINE HCL/CODEINE 6.25-10MG/5ML SYRUP UDCUP PO PRN ×2 (13:06→20:56)
[2017-02-28 16:29] VITALS: BP 143/56
[2017-02-28 19:39] VITALS: BP 151/86
[2017-02-28] MEDS: ZOLPIDEM TARTRATE 5 MG TABLET PO PRN (20:56)
[2017-02-28] MEDS: CefTRIAXone 1 GM/DEXTROSE 50 ML IV SCH (20:56)
[2017-02-28] MEDS: BRIMONIDINE/TIMOLOL 0.2-0.5% 5 ML OPHTHALMIC SOLUTION OU SCH (20:57)
[2017-02-28] MEDS: AZITHROMYCIN 500 MG/NS 250 ML IV SCH (22:30)
[2017-02-28 23:48] VITALS: BP 141/65
[2017-03-01] VITALS (12 sets, daily range): BP systolic 111–166; BP diastolic 52–85
[2017-03-01] MEDS: HEPARIN SODIUM 25000 UNITS/D5W 250 ML IV PRN (01:58)
[2017-03-01 06:49] LABS: BASOPHILS % (AUTO) 0.1 % (0.0-2.0); EOSINOPHILS % (AUTO) 0.05 % (1.0-6.0); LYMPHOCYTES # (AUTO) 0.5 K/uL (1.0-4.8); LYMPHOCYTES % (AUTO) 6.2 % (22.0-44.0); MEAN CORPUSCULAR HEMOGLOBIN 36.7 pg (26.0-34.0); MEAN CORPUSCULAR HGB CONC 34.2 G/dL (31.0-37.0); MEAN CORPUSCULAR VOLUME 107 fL (80-100); MONOCYTES # (AUTO) 0.7 K/uL (0.1-1.0); MONOCYTES % (AUTO) 8.3 % (2.0-9.0); NEUTROPHILS # (AUTO) 6.9 K/uL (1.8-7.7); PLATELET COUNT (AUTO) 657 K/uL (150-450); RED BLOOD CELL COUNT(AUTO) 1.87 MIL/uL (4.00-5.20); RED CELL DISTRIBUTION WIDTH 19.8 % (11.5-14.5)
[2017-03-01 06:54] LABS: ANION GAP 5 mmol/L (8-16); CALCIUM, TOTAL 7.5 mg/dL (8.8-10.5); CARBON DIOXIDE 29 mmol/L (22-29); CHLORIDE 101 mmol/L (98-107); CREATININE 0.59 mg/dL (0.60-1.30); GLOMERULAR FILTR. RATE CALC > 60 mL/min (>60); GLUCOSE,RANDOM 96 mg/dL (70-110); POTASSIUM 3.8 mmol/L (3.5-5.1); SODIUM SERUM 135 mmol/L (136-145); UREA NITROGEN, BLOOD 15 mg/dL (7-18)
[2017-03-01 07:13] LABS: HEMATOCRIT 20.1 % (36-46); HEMOGLOBIN 6.9 g/dL (12.0-16.0); NEUTROPHILS % (AUTO) 85.4 % (40.0-70.0)
[2017-03-01] MEDS: OXYGEN THERAPY IH SCH ×2 (07:57→20:45)
[2017-03-01] MEDS: PANTOPRAZOLE SODIUM 40 MG DR TABLET PO SCH (07:58)
[2017-03-01] MEDS: PredniSONE 20 MG TABLET PO SCH (07:58)
[2017-03-01] MEDS: CALCIUM OYSTER SHELL 500 MG TABLET PO SCH (07:58)
[2017-03-01] MEDS: TIMOLOL MALEATE 0.5% 5 ML OPHTHALMIC SOLUTION OU SCH ×2 (07:58→20:48)
[2017-03-01] MEDS: GuaiFENesin [SUGAR-FREE] 200 MG/10 ML SOLUTION UDCUP PO SCH ×3 (07:59→20:46)
[2017-03-01] MEDS: CHOLECALCIFEROL (VIT D3) 1,000 UNITS TABLET PO SCH (07:59)
[2017-03-01] MEDS: BENZONATATE 100 MG CAPSULE PO SCH ×3 (07:59→20:45)
[2017-03-01] MEDS: DILTIAZEM HCL CD 240 MG ER CAPSULE PO SCH (08:00)
[2017-03-01] MEDS: LOSARTAN POTASSIUM 25 MG TABLET PO SCH (08:00)
[2017-03-01] MEDS: BRIMONIDINE/TIMOLOL 0.2-0.5% 5 ML OPHTHALMIC SOLUTION OU SCH ×2 (08:02→20:48)
[2017-03-01] MEDS: APIXABAN 5 MG TABLET PO SCH ×2 (09:31→20:45)
[2017-03-01] MEDS ORDERED: SODIUM CHLORIDE 0.9% 250 ML IV ONE (12:56)
[2017-03-01] MEDS: SODIUM CHLORIDE 1 GM TABLET PO SCH (15:21)
[2017-03-01] MEDS: BISACODYL 10 MG RECTAL RECTAL SUPPOSITORY PR PRN (18:56)
[2017-03-01] MEDS: ZOLPIDEM TARTRATE 5 MG TABLET PO PRN (20:46)
[2017-03-01] MEDS: PROMETHAZINE HCL/CODEINE 6.25-10MG/5ML SYRUP UDCUP PO PRN (20:46)
[2017-03-01] MEDS: CefTRIAXone 1 GM/DEXTROSE 50 ML IV SCH (20:48)
[2017-03-01] MEDS: TRAVOPROST-Z 0.004% 2.5 ML OPHTHALMIC SOLUTION OU SCH (20:48)
[2017-03-01] MEDS: AZITHROMYCIN 500 MG/NS 250 ML IV SCH (22:15)
[2017-03-02] VITALS (13 sets, daily range): BP systolic 148–214; BP diastolic 50–91
[2017-03-02] MEDS: HEPARIN SODIUM 25000 UNITS/D5W 250 ML IV PRN (00:01)
[2017-03-02] MEDS: DILTIAZEM HCL CD 240 MG ER CAPSULE PO SCH (05:10)
[2017-03-02] MEDS: LOSARTAN POTASSIUM 25 MG TABLET PO SCH (06:57)
[2017-03-02 07:15] LABS: ANION GAP 7 mmol/L (8-16); CALCIUM, TOTAL 7.8 mg/dL (8.8-10.5); CARBON DIOXIDE 30 mmol/L (22-29); CHLORIDE 101 mmol/L (98-107); CREATININE 0.58 mg/dL (0.60-1.30); GLOMERULAR FILTR. RATE CALC > 60 mL/min (>60); GLUCOSE,RANDOM 115 mg/dL (70-110); SODIUM SERUM 138 mmol/L (136-145); UREA NITROGEN, BLOOD 12 mg/dL (7-18)
[2017-03-02] MEDS: HydrALAZINE HCL 20 MG/ML VIAL IVP PRN ×2 (08:49→15:31)
[2017-03-02] MEDS: CHOLECALCIFEROL (VIT D3) 1,000 UNITS TABLET PO SCH (08:52)
[2017-03-02] MEDS: FUROSEMIDE 20 MG TABLET PO SCH (08:52)
[2017-03-02] MEDS: GuaiFENesin [SUGAR-FREE] 200 MG/10 ML SOLUTION UDCUP PO SCH ×3 (08:53→20:11)
[2017-03-02] MEDS: BENZONATATE 100 MG CAPSULE PO SCH ×3 (08:53→20:10)
[2017-03-02] MEDS: SODIUM CHLORIDE 1 GM TABLET PO SCH (08:53)
[2017-03-02] MEDS: PANTOPRAZOLE SODIUM 40 MG DR TABLET PO SCH (08:53)
[2017-03-02] MEDS: APIXABAN 5 MG TABLET PO SCH ×2 (08:54→20:11)
[2017-03-02] MEDS: CALCIUM OYSTER SHELL 500 MG TABLET PO SCH (08:54)
[2017-03-02] MEDS: BRIMONIDINE/TIMOLOL 0.2-0.5% 5 ML OPHTHALMIC SOLUTION OU SCH ×2 (08:56→20:11)
[2017-03-02] MEDS: TIMOLOL MALEATE 0.5% 5 ML OPHTHALMIC SOLUTION OU SCH ×2 (08:56→20:11)
[2017-03-02] MEDS: OXYGEN THERAPY IH SCH ×2 (08:56→20:13)
[2017-03-02] MEDS: PredniSONE 20 MG TABLET PO SCH (08:59)
[2017-03-02 09:39] LABS: BASOPHILS % (AUTO) 0.1 % (0.0-2.0); EOSINOPHILS % (AUTO) 0 % (1.0-6.0); HEMOGLOBIN 9.1 g/dL (12.0-16.0); LYMPHOCYTES # (AUTO) 0.5 K/uL (1.0-4.8); LYMPHOCYTES % (AUTO) 4.6 % (22.0-44.0); MEAN CORPUSCULAR HEMOGLOBIN 35.5 pg (26.0-34.0); MEAN CORPUSCULAR HGB CONC 35.2 G/dL (31.0-37.0); MEAN CORPUSCULAR VOLUME 101 fL (80-100); MONOCYTES % (AUTO) 9.8 % (2.0-9.0); NEUTROPHILS # (AUTO) 8.5 K/uL (1.8-7.7); PLATELET COUNT (AUTO) 627 K/uL (150-450); RED BLOOD CELL COUNT(AUTO) 2.58 MIL/uL (4.00-5.20); RED CELL DISTRIBUTION WIDTH 20.4 % (11.5-14.5)
[2017-03-02 09:41] LABS: NEUTROPHILS % (AUTO) 85.5 % (40.0-70.0)
[2017-03-02] MEDS: ACETAMINOPHEN 325 MG TABLET PO PRN (10:57)
[2017-03-02] MEDS: PROMETHAZINE HCL/CODEINE 6.25-10MG/5ML SYRUP UDCUP PO PRN (17:01)
[2017-03-02] MEDS: TRAVOPROST-Z 0.004% 2.5 ML OPHTHALMIC SOLUTION OU SCH (20:11)
[2017-03-02] MEDS: CefTRIAXone 1 GM/DEXTROSE 50 ML IV SCH (20:11)
[2017-03-02] MEDS ORDERED: SODIUM CHLORIDE 0.9% 250 ML IV ONE (20:18)
[2017-03-02] MEDS: AZITHROMYCIN 500 MG/NS 250 ML IV SCH (22:03)
[2017-03-02] MEDS: ZOLPIDEM TARTRATE 5 MG TABLET PO PRN (23:01)
[2017-03-03 00:13] VITALS: BP 193/68
[2017-03-03] MEDS: HydrALAZINE HCL 20 MG/ML VIAL IVP PRN ×3 (00:15→12:21)
[2017-03-03] MEDS: ONDANSETRON HCL 4 MG/2 ML VIAL IVP PRN (04:06)
[2017-03-03 05:31] VITALS: BP 173/79
[2017-03-03 05:46] LABS: BASOPHILS % (AUTO) 0.1 % (0.0-2.0); EOSINOPHILS % (AUTO) 0.1 % (1.0-6.0); HEMATOCRIT 25.4 % (36-46); HEMOGLOBIN 8.9 g/dL (12.0-16.0); LYMPHOCYTES # (AUTO) 0.5 K/uL (1.0-4.8); LYMPHOCYTES % (AUTO) 3.6 % (22.0-44.0); MEAN CORPUSCULAR HEMOGLOBIN 35.4 pg (26.0-34.0); MEAN CORPUSCULAR VOLUME 101 fL (80-100); MONOCYTES # (AUTO) 0.9 K/uL (0.1-1.0); MONOCYTES % (AUTO) 6.9 % (2.0-9.0); NEUTROPHILS # (AUTO) 11.8 K/uL (1.8-7.7); PLATELET COUNT (AUTO) 554 K/uL (150-450); RED BLOOD CELL COUNT(AUTO) 2.52 MIL/uL (4.00-5.20); RED CELL DISTRIBUTION WIDTH 19.7 % (11.5-14.5)
[2017-03-03 05:54] LABS: NEUTROPHILS % (AUTO) 89.3 % (40.0-70.0)
[2017-03-03 05:58] LABS: ANION GAP 6 mmol/L (8-16); CALCIUM, TOTAL 7.9 mg/dL (8.8-10.5); CARBON DIOXIDE 28 mmol/L (22-29); CHLORIDE 97 mmol/L (98-107); CREATININE 0.58 mg/dL (0.60-1.30); GLOMERULAR FILTR. RATE CALC > 60 mL/min (>60); GLUCOSE,RANDOM 141 mg/dL (70-110); SODIUM SERUM 131 mmol/L (136-145); UREA NITROGEN, BLOOD 11 mg/dL (7-18)
[2017-03-03 07:33] VITALS: BP 158/73
[2017-03-03] MEDS: OXYGEN THERAPY IH SCH ×2 (08:07→21:12)
[2017-03-03] MEDS: APIXABAN 5 MG TABLET PO SCH ×2 (08:08→21:13)
[2017-03-03] MEDS: BENZONATATE 100 MG CAPSULE PO SCH ×3 (08:08→21:13)
[2017-03-03] MEDS: CALCIUM OYSTER SHELL 500 MG TABLET PO SCH (08:08)
[2017-03-03] MEDS: CHOLECALCIFEROL (VIT D3) 1,000 UNITS TABLET PO SCH (08:08)
[2017-03-03] MEDS: PANTOPRAZOLE SODIUM 40 MG DR TABLET PO SCH (08:08)
[2017-03-03] MEDS: DILTIAZEM HCL CD 240 MG ER CAPSULE PO SCH (08:08)
[2017-03-03] MEDS: PredniSONE 20 MG TABLET PO SCH (08:09)
[2017-03-03] MEDS: TIMOLOL MALEATE 0.5% 5 ML OPHTHALMIC SOLUTION OU SCH ×2 (08:09→21:14)
[2017-03-03] MEDS: BRIMONIDINE/TIMOLOL 0.2-0.5% 5 ML OPHTHALMIC SOLUTION OU SCH ×2 (08:09→21:14)
[2017-03-03] MEDS: GuaiFENesin [SUGAR-FREE] 200 MG/10 ML SOLUTION UDCUP PO SCH ×3 (08:11→21:13)
[2017-03-03] MEDS: LOSARTAN POTASSIUM 50 MG TABLET PO SCH ×2 (09:00→21:13)
[2017-03-03] MEDS ORDERED: LOSARTAN POTASSIUM 50 MG TABLET PO SCH (09:00)
[2017-03-03] MEDS: SODIUM CHLORIDE 1 GM TABLET PO SCH (09:18)
[2017-03-03 11:12] VITALS: BP 169/68
[2017-03-03] MEDS: BISACODYL 10 MG RECTAL RECTAL SUPPOSITORY PR PRN (12:03)
[2017-03-03] MEDS: FUROSEMIDE 20 MG TABLET PO SCH (12:03)
[2017-03-03 15:54] LABS: ANION GAP 7 mmol/L (8-16); CALCIUM, TOTAL 8.4 mg/dL (8.8-10.5); CARBON DIOXIDE 29 mmol/L (22-29); CHLORIDE 95 mmol/L (98-107); CREATININE 0.56 mg/dL (0.60-1.30); GLOMERULAR FILTR. RATE CALC > 60 mL/min (>60); GLUCOSE,RANDOM 201 mg/dL (70-110); POTASSIUM 4.6 mmol/L (3.5-5.1); SODIUM SERUM 131 mmol/L (136-145); UREA NITROGEN, BLOOD 16 mg/dL (7-18)
[2017-03-03 16:15] LABS: SODIUM,URINE RANDOM 84 mmol/l (20-110)
[2017-03-03 16:20] LABS: OSMOLALITY 276 mOS/kg (270-310)
[2017-03-03 17:01] VITALS: BP 152/70
[2017-03-03 17:12] LABS: OSMOLALITY,URINE 479 mOS/kg (50-1200)
[2017-03-03] MEDS: PROMETHAZINE HCL/CODEINE 6.25-10MG/5ML SYRUP UDCUP PO PRN (18:39)
[2017-03-03 19:37] VITALS: BP 135/85
[2017-03-03] MEDS: CefTRIAXone 1 GM/DEXTROSE 50 ML IV SCH (21:14)
[2017-03-03] MEDS: TRAVOPROST-Z 0.004% 2.5 ML OPHTHALMIC SOLUTION OU SCH (21:14)
[2017-03-03] MEDS: METOPROLOL TARTRATE 5 MG/5 ML VIAL IVP PRN (21:55)
[2017-03-03] MEDS: ZOLPIDEM TARTRATE 5 MG TABLET PO PRN (22:05)
[2017-03-03] MEDS: AZITHROMYCIN 500 MG/NS 250 ML IV SCH (22:08)
[2017-03-04 00:11] VITALS: BP 122/82
[2017-03-04] MEDS: METOPROLOL TARTRATE 5 MG/5 ML VIAL IVP PRN (03:56)
[2017-03-04 05:11] VITALS: BP 144/76
[2017-03-04 07:18] LABS: ANION GAP 6 mmol/L (8-16); CALCIUM, TOTAL 8.2 mg/dL (8.8-10.5); CARBON DIOXIDE 30 mmol/L (22-29); CHLORIDE 96 mmol/L (98-107); CREATININE 0.51 mg/dL (0.60-1.30); GLOMERULAR FILTR. RATE CALC > 60 mL/min (>60); GLUCOSE,RANDOM 101 mg/dL (70-110); POTASSIUM 4.3 mmol/L (3.5-5.1); SODIUM SERUM 132 mmol/L (136-145); UREA NITROGEN, BLOOD 16 mg/dL (7-18)
[2017-03-04 07:43] VITALS: BP 133/78
[2017-03-04] MEDS: GuaiFENesin [SUGAR-FREE] 200 MG/10 ML SOLUTION UDCUP PO SCH ×3 (08:34→20:57)
[2017-03-04] MEDS: TIMOLOL MALEATE 0.5% 5 ML OPHTHALMIC SOLUTION OU SCH ×2 (08:34→20:57)
[2017-03-04] MEDS: BRIMONIDINE/TIMOLOL 0.2-0.5% 5 ML OPHTHALMIC SOLUTION OU SCH ×2 (08:34→20:57)
[2017-03-04] MEDS: APIXABAN 5 MG TABLET PO SCH ×2 (08:35→20:57)
[2017-03-04] MEDS: PredniSONE 20 MG TABLET PO SCH (08:35)
[2017-03-04] MEDS: PANTOPRAZOLE SODIUM 40 MG DR TABLET PO SCH (08:36)
[2017-03-04] MEDS: BENZONATATE 100 MG CAPSULE PO SCH ×3 (08:36→20:58)
[2017-03-04] MEDS: LOSARTAN POTASSIUM 50 MG TABLET PO SCH ×2 (08:36→20:58)
[2017-03-04] MEDS: SODIUM CHLORIDE 1 GM TABLET PO SCH (08:36)
[2017-03-04] MEDS: CHOLECALCIFEROL (VIT D3) 1,000 UNITS TABLET PO SCH (08:36)
[2017-03-04] MEDS: CALCIUM OYSTER SHELL 500 MG TABLET PO SCH (08:36)
[2017-03-04] MEDS: DILTIAZEM HCL CD 240 MG ER CAPSULE PO SCH (08:36)
[2017-03-04] MEDS: ONDANSETRON HCL 4 MG/2 ML VIAL IVP PRN (08:41)
[2017-03-04] MEDS: OXYGEN THERAPY IH SCH ×2 (08:46→20:57)
[2017-03-04] MEDS: METOPROLOL TARTRATE 25 MG TABLET PO SCH ×2 (10:18→20:58)
[2017-03-04] MEDS: FUROSEMIDE 20 MG TABLET PO SCH (10:18)
[2017-03-04 10:58] VITALS: BP 129/64
[2017-03-04 14:59] VITALS: BP 108/61
[2017-03-04] MEDS: AMIODARONE HCL 200 MG TABLET PO SCH ×2 (16:57→20:58)
[2017-03-04] MEDS ORDERED: SODIUM PHOS/SODIUM BIPHOS 133 ML ENEMA PR ONE (18:00)
[2017-03-04 19:45] VITALS: BP 108/63
[2017-03-04] MEDS: TRAVOPROST-Z 0.004% 2.5 ML OPHTHALMIC SOLUTION OU SCH (20:57)
[2017-03-04] MEDS: CefTRIAXone 1 GM/DEXTROSE 50 ML IV SCH (20:58)
[2017-03-04] MEDS: AZITHROMYCIN 500 MG/NS 250 ML IV SCH (23:05)
[2017-03-05] VITALS (7 sets, daily range): BP systolic 112–137; BP diastolic 51–98
[2017-03-05] MEDS: PROMETHAZINE HCL/CODEINE 6.25-10MG/5ML SYRUP UDCUP PO PRN ×2 (03:41→16:24)
[2017-03-05 07:39] LABS: EOSINOPHILS % (AUTO) 0 % (1.0-6.0); HEMATOCRIT 21.2 % (36-46); HEMOGLOBIN 7.2 g/dL (12.0-16.0); LYMPHOCYTES # (AUTO) 0.3 K/uL (1.0-4.8); LYMPHOCYTES % (AUTO) 3.9 % (22.0-44.0); MEAN CORPUSCULAR HEMOGLOBIN 33.8 pg (26.0-34.0); MEAN CORPUSCULAR HGB CONC 33.9 G/dL (31.0-37.0); MEAN CORPUSCULAR VOLUME 100 fL (80-100); MONOCYTES # (AUTO) 0.9 K/uL (0.1-1.0); NEUTROPHILS # (AUTO) 6.9 K/uL (1.8-7.7); NEUTROPHILS % (AUTO) 85.1 % (40.0-70.0); PLATELET COUNT (AUTO) 321 K/uL (150-450); RED BLOOD CELL COUNT(AUTO) 2.13 MIL/uL (4.00-5.20); RED CELL DISTRIBUTION WIDTH 18.1 % (11.5-14.5)
[2017-03-05 08:08] LABS: ALANINE AMINOTRANSFERASE 93 U/L (12-78); ALBUMIN 2.9 g/dL (3.4-5.0); ALKALINE PHOSPHATASE 58 U/L (46-116); ANION GAP 4 mmol/L (8-16); ASPARTATE AMINOTRANSFERASE 34 U/L (15-37); BILIRUBIN,TOTAL 1.3 mg/dL (0.1-1.0); CALCIUM, TOTAL 7.8 mg/dL (8.8-10.5); CARBON DIOXIDE 29 mmol/L (22-29); CHLORIDE 97 mmol/L (98-107); CREATININE 0.65 mg/dL (0.60-1.30); GLOMERULAR FILTR. RATE CALC > 60 mL/min (>60); GLUCOSE,RANDOM 111 mg/dL (70-110); POTASSIUM 3.8 mmol/L (3.5-5.1); SODIUM SERUM 130 mmol/L (136-145); TOTAL PROTEIN, SERUM 5.2 g/dL (6.4-8.2); UREA NITROGEN, BLOOD 17 mg/dL (7-18)
[2017-03-05] MEDS: BRIMONIDINE/TIMOLOL 0.2-0.5% 5 ML OPHTHALMIC SOLUTION OU SCH ×2 (08:37→20:35)
[2017-03-05] MEDS: GuaiFENesin [SUGAR-FREE] 200 MG/10 ML SOLUTION UDCUP PO SCH ×3 (08:37→20:34)
[2017-03-05] MEDS: LOSARTAN POTASSIUM 50 MG TABLET PO SCH ×2 (08:37→20:34)
[2017-03-05] MEDS: TIMOLOL MALEATE 0.5% 5 ML OPHTHALMIC SOLUTION OU SCH ×2 (08:37→20:36)
[2017-03-05] MEDS: DILTIAZEM HCL CD 240 MG ER CAPSULE PO SCH (08:37)
[2017-03-05] MEDS: AMIODARONE HCL 200 MG TABLET PO SCH ×3 (08:37→20:34)
[2017-03-05] MEDS: CALCIUM OYSTER SHELL 500 MG TABLET PO SCH (08:37)
[2017-03-05] MEDS: SODIUM CHLORIDE 1 GM TABLET PO SCH ×2 (08:38→23:07)
[2017-03-05] MEDS: METOPROLOL TARTRATE 25 MG TABLET PO SCH ×2 (08:38→20:34)
[2017-03-05] MEDS: BENZONATATE 100 MG CAPSULE PO SCH ×3 (08:38→20:34)
[2017-03-05] MEDS: APIXABAN 5 MG TABLET PO SCH ×2 (08:38→20:35)
[2017-03-05] MEDS: PANTOPRAZOLE SODIUM 40 MG DR TABLET PO SCH (08:39)
[2017-03-05] MEDS: OXYGEN THERAPY IH SCH ×2 (08:39→20:34)
[2017-03-05] MEDS: CHOLECALCIFEROL (VIT D3) 1,000 UNITS TABLET PO SCH (08:39)
[2017-03-05] MEDS: PredniSONE 20 MG TABLET PO SCH (09:33)
[2017-03-05] MEDS: FUROSEMIDE 20 MG TABLET PO SCH (11:11)
[2017-03-05] MEDS: CefTRIAXone 1 GM/DEXTROSE 50 ML IV SCH (20:34)
[2017-03-05] MEDS: TRAVOPROST-Z 0.004% 2.5 ML OPHTHALMIC SOLUTION OU SCH (20:36)
[2017-03-05] MEDS: AZITHROMYCIN 500 MG/NS 250 ML IV SCH (22:50)
[2017-03-05] MEDS: ZOLPIDEM TARTRATE 5 MG TABLET PO PRN (23:41)
[2017-03-06] VITALS (13 sets, daily range): BP systolic 116–155; BP diastolic 54–94
[2017-03-06] MEDS: PROMETHAZINE HCL/CODEINE 6.25-10MG/5ML SYRUP UDCUP PO PRN (05:54)
[2017-03-06 07:52] LABS: EOSINOPHILS % (AUTO) 0 % (1.0-6.0); LYMPHOCYTES # (AUTO) 0.3 K/uL (1.0-4.8); LYMPHOCYTES % (AUTO) 4.7 % (22.0-44.0); MEAN CORPUSCULAR HEMOGLOBIN 34.4 pg (26.0-34.0); MEAN CORPUSCULAR HGB CONC 34.2 G/dL (31.0-37.0); MEAN CORPUSCULAR VOLUME 101 fL (80-100); MONOCYTES # (AUTO) 0.7 K/uL (0.1-1.0); NEUTROPHILS # (AUTO) 6.3 K/uL (1.8-7.7); PLATELET COUNT (AUTO) 341 K/uL (150-450); RED BLOOD CELL COUNT(AUTO) 2.03 MIL/uL (4.00-5.20); RED CELL DISTRIBUTION WIDTH 18.6 % (11.5-14.5)
[2017-03-06 08:03] LABS: HEMATOCRIT 20.4 % (36-46); NEUTROPHILS % (AUTO) 85.3 % (40.0-70.0)
[2017-03-06 08:10] LABS: ALANINE AMINOTRANSFERASE 77 U/L (12-78); ALBUMIN 2.8 g/dL (3.4-5.0); ALKALINE PHOSPHATASE 54 U/L (46-116); ANION GAP 7 mmol/L (8-16); ASPARTATE AMINOTRANSFERASE 22 U/L (15-37); BILIRUBIN,TOTAL 1.2 mg/dL (0.1-1.0); CALCIUM, TOTAL 7.7 mg/dL (8.8-10.5); CARBON DIOXIDE 28 mmol/L (22-29); CHLORIDE 98 mmol/L (98-107); CREATININE 0.59 mg/dL (0.60-1.30); GLOMERULAR FILTR. RATE CALC > 60 mL/min (>60); GLUCOSE,RANDOM 101 mg/dL (70-110); POTASSIUM 3.4 mmol/L (3.5-5.1); SODIUM SERUM 133 mmol/L (136-145); UREA NITROGEN, BLOOD 17 mg/dL (7-18)
[2017-03-06] MEDS: PANTOPRAZOLE SODIUM 40 MG DR TABLET PO SCH (08:16)
[2017-03-06] MEDS: CHOLECALCIFEROL (VIT D3) 1,000 UNITS TABLET PO SCH (08:16)
[2017-03-06] MEDS: BENZONATATE 100 MG CAPSULE PO SCH ×3 (08:16→20:34)
[2017-03-06] MEDS: APIXABAN 5 MG TABLET PO SCH ×2 (08:16→20:34)
[2017-03-06] MEDS: SODIUM CHLORIDE 1 GM TABLET PO SCH ×3 (08:16→18:12)
[2017-03-06] MEDS: BRIMONIDINE/TIMOLOL 0.2-0.5% 5 ML OPHTHALMIC SOLUTION OU SCH ×2 (08:17→20:35)
[2017-03-06] MEDS: LOSARTAN POTASSIUM 50 MG TABLET PO SCH ×2 (08:17→20:33)
[2017-03-06] MEDS: AMIODARONE HCL 200 MG TABLET PO SCH (08:17)
[2017-03-06] MEDS: DILTIAZEM HCL CD 240 MG ER CAPSULE PO SCH (08:17)
[2017-03-06] MEDS: CALCIUM OYSTER SHELL 500 MG TABLET PO SCH (08:17)
[2017-03-06] MEDS: GuaiFENesin [SUGAR-FREE] 200 MG/10 ML SOLUTION UDCUP PO SCH ×3 (08:17→20:34)
[2017-03-06] MEDS: METOPROLOL TARTRATE 25 MG TABLET PO SCH ×2 (08:17→20:34)
[2017-03-06] MEDS: TIMOLOL MALEATE 0.5% 5 ML OPHTHALMIC SOLUTION OU SCH ×2 (08:18→20:34)
[2017-03-06] MEDS: OXYGEN THERAPY IH SCH ×2 (08:18→20:33)
[2017-03-06] MEDS: PredniSONE 20 MG TABLET PO SCH (09:42)
[2017-03-06] MEDS: FUROSEMIDE 20 MG TABLET PO SCH (12:06)
[2017-03-06] MEDS ORDERED: SODIUM CHLORIDE 0.9% 250 ML IV ONE (14:07)
[2017-03-06] MEDS: TRAVOPROST-Z 0.004% 2.5 ML OPHTHALMIC SOLUTION OU SCH (20:35)
[2017-03-06] MEDS: ZOLPIDEM TARTRATE 5 MG TABLET PO PRN (20:38)
[2017-03-06] MEDS: CefTRIAXone 1 GM/DEXTROSE 50 ML IV SCH (20:39)
[2017-03-06] MEDS: AZITHROMYCIN 500 MG/NS 250 ML IV SCH (21:41)
[2017-03-07 00:30] VITALS: BP 160/76
[2017-03-07 04:21] VITALS: BP 156/67
[2017-03-07] MEDS: HydrALAZINE HCL 20 MG/ML VIAL IVP PRN (05:33)
[2017-03-07 06:32] LABS: EOSINOPHILS % (AUTO) 0.06 % (1.0-6.0); HEMATOCRIT 24.4 % (36-46); HEMOGLOBIN 8.3 g/dL (12.0-16.0); LYMPHOCYTES # (AUTO) 0.3 K/uL (1.0-4.8); LYMPHOCYTES % (AUTO) 4.5 % (22.0-44.0); MEAN CORPUSCULAR HEMOGLOBIN 33.6 pg (26.0-34.0); MEAN CORPUSCULAR VOLUME 99 fL (80-100); MONOCYTES # (AUTO) 0.6 K/uL (0.1-1.0); MONOCYTES % (AUTO) 10.2 % (2.0-9.0); NEUTROPHILS # (AUTO) 5.2 K/uL (1.8-7.7); PLATELET COUNT (AUTO) 314 K/uL (150-450); RED BLOOD CELL COUNT(AUTO) 2.47 MIL/uL (4.00-5.20); RED CELL DISTRIBUTION WIDTH 17.1 % (11.5-14.5)
[2017-03-07 06:59] LABS: ALANINE AMINOTRANSFERASE 78 U/L (12-78); ALBUMIN 2.8 g/dL (3.4-5.0); ALKALINE PHOSPHATASE 55 U/L (46-116); ANION GAP 4 mmol/L (8-16); ASPARTATE AMINOTRANSFERASE 25 U/L (15-37); BILIRUBIN,TOTAL 1.8 mg/dL (0.1-1.0); CALCIUM, TOTAL 7.3 mg/dL (8.8-10.5); CARBON DIOXIDE 31 mmol/L (22-29); CHLORIDE 100 mmol/L (98-107); CREATININE 0.54 mg/dL (0.60-1.30); GLOMERULAR FILTR. RATE CALC > 60 mL/min (>60); GLUCOSE,RANDOM 94 mg/dL (70-110); SODIUM SERUM 135 mmol/L (136-145); UREA NITROGEN, BLOOD 14 mg/dL (7-18)
[2017-03-07 07:19] LABS: NEUTROPHILS % (AUTO) 85.3 % (40.0-70.0)
[2017-03-07 07:34] VITALS: BP 151/70
[2017-03-07] MEDS: OXYGEN THERAPY IH SCH ×2 (08:49→20:48)
[2017-03-07] MEDS: DILTIAZEM HCL CD 240 MG ER CAPSULE PO SCH (08:50)
[2017-03-07] MEDS: GuaiFENesin [SUGAR-FREE] 200 MG/10 ML SOLUTION UDCUP PO SCH ×3 (08:50→20:48)
[2017-03-07] MEDS: SODIUM CHLORIDE 1 GM TABLET PO SCH ×3 (08:50→16:48)
[2017-03-07] MEDS: BENZONATATE 100 MG CAPSULE PO SCH ×3 (08:51→20:46)
[2017-03-07] MEDS: CALCIUM OYSTER SHELL 500 MG TABLET PO SCH (08:51)
[2017-03-07] MEDS: AMIODARONE HCL 200 MG TABLET PO SCH (08:51)
[2017-03-07] MEDS: APIXABAN 5 MG TABLET PO SCH ×2 (08:51→20:47)
[2017-03-07] MEDS: LOSARTAN POTASSIUM 50 MG TABLET PO SCH ×2 (08:51→20:46)
[2017-03-07] MEDS: METOPROLOL TARTRATE 25 MG TABLET PO SCH ×2 (08:51→20:46)
[2017-03-07] MEDS: CHOLECALCIFEROL (VIT D3) 1,000 UNITS TABLET PO SCH (08:52)
[2017-03-07] MEDS: TIMOLOL MALEATE 0.5% 5 ML OPHTHALMIC SOLUTION OU SCH ×2 (08:52→20:48)
[2017-03-07] MEDS: PROMETHAZINE HCL/CODEINE 6.25-10MG/5ML SYRUP UDCUP PO PRN (08:52)
[2017-03-07] MEDS: BRIMONIDINE/TIMOLOL 0.2-0.5% 5 ML OPHTHALMIC SOLUTION OU SCH ×2 (08:52→20:47)
[2017-03-07] MEDS: PANTOPRAZOLE SODIUM 40 MG DR TABLET PO SCH (08:52)
[2017-03-07] MEDS ORDERED: POTASSIUM CHL 10 MEQ/WATER 50 ML IV PRN (09:15)
[2017-03-07] MEDS ORDERED: POTASSIUM CHLORIDE 20 MEQ ER TABLET PO PRN (09:15)
[2017-03-07] MEDS: PredniSONE 20 MG TABLET PO SCH (09:58)
[2017-03-07 11:13] VITALS: BP 132/63
[2017-03-07 20:04] VITALS: BP 148/62
[2017-03-07] MEDS: ZOLPIDEM TARTRATE 5 MG TABLET PO PRN (20:46)
[2017-03-07] MEDS: TRAVOPROST-Z 0.004% 2.5 ML OPHTHALMIC SOLUTION OU SCH (20:47)
[2017-03-07] MEDS: CefTRIAXone 1 GM/DEXTROSE 50 ML IV SCH (20:48)
[2017-03-07] MEDS: AZITHROMYCIN 500 MG/NS 250 ML IV SCH (23:35)
[2017-03-08] VITALS (7 sets, daily range): BP systolic 131–163; BP diastolic 52–81
[2017-03-08] MEDS: AMIODARONE HCL 200 MG TABLET PO SCH (08:05)
[2017-03-08] MEDS: DILTIAZEM HCL CD 240 MG ER CAPSULE PO SCH (08:05)
[2017-03-08] MEDS: TIMOLOL MALEATE 0.5% 5 ML OPHTHALMIC SOLUTION OU SCH ×2 (08:05→20:30)
[2017-03-08] MEDS: PANTOPRAZOLE SODIUM 40 MG DR TABLET PO SCH (08:05)
[2017-03-08] MEDS: METOPROLOL TARTRATE 25 MG TABLET PO SCH ×2 (08:05→18:01)
[2017-03-08] MEDS: GuaiFENesin [SUGAR-FREE] 200 MG/10 ML SOLUTION UDCUP PO SCH ×3 (08:05→20:29)
[2017-03-08] MEDS: SODIUM CHLORIDE 1 GM TABLET PO SCH ×3 (08:05→18:00)
[2017-03-08] MEDS: BRIMONIDINE/TIMOLOL 0.2-0.5% 5 ML OPHTHALMIC SOLUTION OU SCH ×2 (08:05→20:30)
[2017-03-08] MEDS: CHOLECALCIFEROL (VIT D3) 1,000 UNITS TABLET PO SCH (08:06)
[2017-03-08] MEDS: LOSARTAN POTASSIUM 50 MG TABLET PO SCH ×2 (08:06→20:29)
[2017-03-08] MEDS: CALCIUM OYSTER SHELL 500 MG TABLET PO SCH (08:06)
[2017-03-08] MEDS: BENZONATATE 100 MG CAPSULE PO SCH ×3 (08:06→20:29)
[2017-03-08] MEDS: OXYGEN THERAPY IH SCH ×2 (08:13→20:28)
[2017-03-08 08:16] LABS: ALANINE AMINOTRANSFERASE 72 U/L (12-78); ALBUMIN 2.8 g/dL (3.4-5.0); ALKALINE PHOSPHATASE 55 U/L (46-116); ANION GAP 3 mmol/L (8-16); ASPARTATE AMINOTRANSFERASE 23 U/L (15-37); BILIRUBIN,TOTAL 1.4 mg/dL (0.1-1.0); CALCIUM, TOTAL 7.5 mg/dL (8.8-10.5); CARBON DIOXIDE 29 mmol/L (22-29); CHLORIDE 103 mmol/L (98-107); CREATININE 0.53 mg/dL (0.60-1.30); GLOMERULAR FILTR. RATE CALC > 60 mL/min (>60); GLUCOSE,RANDOM 93 mg/dL (70-110); PHOSPHORUS 1.5 mg/dL (2.5-4.9); SODIUM SERUM 135 mmol/L (136-145); TOTAL PROTEIN, SERUM 4.9 g/dL (6.4-8.2); UREA NITROGEN, BLOOD 14 mg/dL (7-18)
[2017-03-08] MEDS: PredniSONE 20 MG TABLET PO SCH (08:58)
[2017-03-08 09:25] LABS: EOSINOPHILS % (AUTO) 0.1 % (1.0-6.0); HEMATOCRIT 24.7 % (36-46); HEMOGLOBIN 8.4 g/dL (12.0-16.0); LYMPHOCYTES # (AUTO) 0.3 K/uL (1.0-4.8); LYMPHOCYTES % (AUTO) 4.4 % (22.0-44.0); MEAN CORPUSCULAR HEMOGLOBIN 33.8 pg (26.0-34.0); MEAN CORPUSCULAR HGB CONC 33.9 G/dL (31.0-37.0); MEAN CORPUSCULAR VOLUME 100 fL (80-100); MONOCYTES # (AUTO) 0.6 K/uL (0.1-1.0); MONOCYTES % (AUTO) 10.5 % (2.0-9.0); PLATELET COUNT (AUTO) 341 K/uL (150-450); RED BLOOD CELL COUNT(AUTO) 2.47 MIL/uL (4.00-5.20); RED CELL DISTRIBUTION WIDTH 17.4 % (11.5-14.5)
[2017-03-08] MEDS: APIXABAN 5 MG TABLET PO SCH ×2 (10:14→20:29)
[2017-03-08] MEDS ORDERED: SODIUM PHOS,M-BASIC-D-BASIC 30 MMOL in DEXTROSE 5%-WATER 250 ML IV ONE (13:00)
[2017-03-08] MEDS: CefTRIAXone 1 GM/DEXTROSE 50 ML IV SCH (20:29)
[2017-03-08] MEDS: TRAVOPROST-Z 0.004% 2.5 ML OPHTHALMIC SOLUTION OU SCH (20:30)
[2017-03-08] MEDS: ZOLPIDEM TARTRATE 5 MG TABLET PO PRN (20:33)
[2017-03-08] MEDS: AZITHROMYCIN 500 MG/NS 250 ML IV SCH (21:28)
[2017-03-09 04:12] VITALS: BP 163/68
[2017-03-09] MEDS: HydrALAZINE HCL 20 MG/ML VIAL IVP PRN (04:28)
[2017-03-09] MEDS: IPRATROPIUM BROMIDE 0.5 MG/2.5 ML NEB SOLUTION NEB PRN (04:29)
[2017-03-09] MEDS: PROMETHAZINE HCL/CODEINE 6.25-10MG/5ML SYRUP UDCUP PO PRN (04:54)
[2017-03-09 07:38] VITALS: BP 157/63
[2017-03-09 07:54] LABS: EOSINOPHILS % (AUTO) 0.1 % (1.0-6.0); HEMATOCRIT 28.7 % (36-46); HEMOGLOBIN 9.6 g/dL (12.0-16.0); LYMPHOCYTES # (AUTO) 0.4 K/uL (1.0-4.8); LYMPHOCYTES % (AUTO) 3.4 % (22.0-44.0); MEAN CORPUSCULAR HEMOGLOBIN 34.1 pg (26.0-34.0); MEAN CORPUSCULAR HGB CONC 33.6 G/dL (31.0-37.0); MEAN CORPUSCULAR VOLUME 102 fL (80-100); MONOCYTES # (AUTO) 1.1 K/uL (0.1-1.0); MONOCYTES % (AUTO) 9.7 % (2.0-9.0); NEUTROPHILS # (AUTO) 9.7 K/uL (1.8-7.7); PLATELET COUNT (AUTO) 422 K/uL (150-450); RED BLOOD CELL COUNT(AUTO) 2.82 MIL/uL (4.00-5.20); RED CELL DISTRIBUTION WIDTH 18.3 % (11.5-14.5)
[2017-03-09 08:08] LABS: NEUTROPHILS % (AUTO) 86.8 % (40.0-70.0)
[2017-03-09 08:20] LABS: ALANINE AMINOTRANSFERASE 60 U/L (12-78); ALKALINE PHOSPHATASE 64 U/L (46-116); ANION GAP 5 mmol/L (8-16); ASPARTATE AMINOTRANSFERASE 20 U/L (15-37); BILIRUBIN,TOTAL 1.6 mg/dL (0.1-1.0); CALCIUM, TOTAL 7.8 mg/dL (8.8-10.5); CARBON DIOXIDE 30 mmol/L (22-29); CHLORIDE 101 mmol/L (98-107); CREATININE 0.44 mg/dL (0.60-1.30); GLOMERULAR FILTR. RATE CALC > 60 mL/min (>60); GLUCOSE,RANDOM 170 mg/dL (70-110); POTASSIUM 3.9 mmol/L (3.5-5.1); SODIUM SERUM 136 mmol/L (136-145); TOTAL PROTEIN, SERUM 5.4 g/dL (6.4-8.2); UREA NITROGEN, BLOOD 12 mg/dL (7-18)
[2017-03-09] MEDS: DILTIAZEM HCL CD 240 MG ER CAPSULE PO SCH (08:24)
[2017-03-09] MEDS: APIXABAN 5 MG TABLET PO SCH ×2 (08:24→20:26)
[2017-03-09] MEDS: LOSARTAN POTASSIUM 50 MG TABLET PO SCH ×2 (08:24→20:26)
[2017-03-09] MEDS: BENZONATATE 100 MG CAPSULE PO SCH ×3 (08:24→20:26)
[2017-03-09] MEDS: TIMOLOL MALEATE 0.5% 5 ML OPHTHALMIC SOLUTION OU SCH ×2 (08:24→20:27)
[2017-03-09] MEDS: AMIODARONE HCL 200 MG TABLET PO SCH (08:24)
[2017-03-09] MEDS: BRIMONIDINE/TIMOLOL 0.2-0.5% 5 ML OPHTHALMIC SOLUTION OU SCH ×2 (08:25→20:27)
[2017-03-09] MEDS: SODIUM CHLORIDE 1 GM TABLET PO SCH ×3 (08:25→17:45)
[2017-03-09] MEDS: CALCIUM OYSTER SHELL 500 MG TABLET PO SCH (08:30)
[2017-03-09] MEDS: PANTOPRAZOLE SODIUM 40 MG DR TABLET PO SCH (08:30)
[2017-03-09] MEDS: GuaiFENesin [SUGAR-FREE] 200 MG/10 ML SOLUTION UDCUP PO SCH ×3 (08:35→20:27)
[2017-03-09] MEDS: CHOLECALCIFEROL (VIT D3) 1,000 UNITS TABLET PO SCH (08:36)
[2017-03-09] MEDS: PredniSONE 20 MG TABLET PO SCH ×2 (09:00→11:21)
[2017-03-09] MEDS ORDERED: IPRATROPIUM BROMIDE 0.5 MG/2.5 ML NEB SOLUTION NEB PRN (11:45)
[2017-03-09] MEDS ORDERED: ALBUTEROL SULFATE 2.5 MG/0.5 ML NEB SOLUTION NEB PRN (11:45)
[2017-03-09 12:14] VITALS: BP 146/55
[2017-03-09] MEDS: IPRATROPIUM BROMIDE 0.5 MG/2.5 ML NEB SOLUTION NEB SCH ×2 (15:44→20:41)
[2017-03-09] MEDS: ALBUTEROL SULFATE 2.5 MG/0.5 ML NEB SOLUTION NEB SCH ×2 (15:45→20:42)
[2017-03-09 16:15] VITALS: BP 167/73
[2017-03-09] MEDS ORDERED: SODIUM PHOS/SODIUM BIPHOS 133 ML ENEMA PR ONE (16:30)
[2017-03-09] MEDS: METOPROLOL TARTRATE 25 MG TABLET PO SCH (17:45)
[2017-03-09 19:25] VITALS: BP 157/53
[2017-03-09] MEDS ORDERED: SODIUM CHLORIDE 0.9% 250 ML IV ONE (20:12)
[2017-03-09] MEDS: CefTRIAXone 1 GM/DEXTROSE 50 ML IV SCH (20:26)
[2017-03-09] MEDS: TRAVOPROST-Z 0.004% 2.5 ML OPHTHALMIC SOLUTION OU SCH (20:27)
[2017-03-09] MEDS: AZITHROMYCIN 500 MG/NS 250 ML IV SCH (22:46)
[2017-03-09 23:29] VITALS: BP 159/67
[2017-03-10] MEDS: ALBUTEROL SULFATE 2.5 MG/0.5 ML NEB SOLUTION NEB SCH ×3 (02:01→14:00)
[2017-03-10] MEDS: IPRATROPIUM BROMIDE 0.5 MG/2.5 ML NEB SOLUTION NEB SCH ×3 (02:01→14:00)
[2017-03-10 04:12] VITALS: BP 148/60
[2017-03-10 08:22] VITALS: BP 166/75
[2017-03-10] MEDS: CALCIUM OYSTER SHELL 500 MG TABLET PO SCH (09:00)
[2017-03-10] MEDS: APIXABAN 5 MG TABLET PO SCH ×2 (09:00→11:55)
[2017-03-10] MEDS: PANTOPRAZOLE SODIUM 40 MG DR TABLET PO SCH (09:00)
[2017-03-10] MEDS: DILTIAZEM HCL CD 240 MG ER CAPSULE PO SCH ×2 (09:00→11:55)
[2017-03-10] MEDS: BRIMONIDINE/TIMOLOL 0.2-0.5% 5 ML OPHTHALMIC SOLUTION OU SCH ×2 (09:00→11:56)
[2017-03-10] MEDS: BENZONATATE 100 MG CAPSULE PO SCH ×2 (09:00→11:55)
[2017-03-10] MEDS: PredniSONE 20 MG TABLET PO SCH ×2 (09:00→12:08)
[2017-03-10] MEDS: LOSARTAN POTASSIUM 50 MG TABLET PO SCH ×2 (09:00→11:56)
[2017-03-10] MEDS: GuaiFENesin [SUGAR-FREE] 200 MG/10 ML SOLUTION UDCUP PO SCH (09:00)
[2017-03-10] MEDS: TIMOLOL MALEATE 0.5% 5 ML OPHTHALMIC SOLUTION OU SCH ×2 (09:00→11:56)
[2017-03-10] MEDS: CHOLECALCIFEROL (VIT D3) 1,000 UNITS TABLET PO SCH (09:00)
[2017-03-10] MEDS: AMIODARONE HCL 200 MG TABLET PO SCH ×2 (09:00→11:56)
[2017-03-10 09:04] LABS: BASOPHILS % (AUTO) 0.1 % (0.0-2.0); EOSINOPHILS % (AUTO) 0 % (1.0-6.0); HEMOGLOBIN 8.5 g/dL (12.0-16.0); LYMPHOCYTES # (AUTO) 0.2 K/uL (1.0-4.8); LYMPHOCYTES % (AUTO) 4.5 % (22.0-44.0); MEAN CORPUSCULAR HEMOGLOBIN 34.1 pg (26.0-34.0); MEAN CORPUSCULAR VOLUME 100 fL (80-100); MONOCYTES # (AUTO) 0.5 K/uL (0.1-1.0); MONOCYTES % (AUTO) 11.7 % (2.0-9.0); NEUTROPHILS # (AUTO) 3.3 K/uL (1.8-7.7); NEUTROPHILS % (AUTO) 83.7 % (40.0-70.0); PLATELET COUNT (AUTO) 284 K/uL (150-450); RED BLOOD CELL COUNT(AUTO) 2.49 MIL/uL (4.00-5.20); RED CELL DISTRIBUTION WIDTH 17.5 % (11.5-14.5)
[2017-03-10 09:22] LABS: ANION GAP 7 mmol/L (8-16); CALCIUM, TOTAL 7.8 mg/dL (8.8-10.5); CARBON DIOXIDE 28 mmol/L (22-29); CHLORIDE 102 mmol/L (98-107); CREATININE 0.45 mg/dL (0.60-1.30); GLOMERULAR FILTR. RATE CALC > 60 mL/min (>60); GLUCOSE,RANDOM 89 mg/dL (70-110); PHOSPHORUS 1.8 mg/dL (2.5-4.9); POTASSIUM 3.6 mmol/L (3.5-5.1); SODIUM SERUM 137 mmol/L (136-145); UREA NITROGEN, BLOOD 10 mg/dL (7-18)
[2017-03-10 09:51] LABS: LACTATE DEHYDROGENASE 436 U/L (81-234)
[2017-03-10] MEDS: SODIUM CHLORIDE 1 GM TABLET PO SCH ×2 (10:04→11:55)
[2017-03-10] MEDS ORDERED: SODIUM PHOS,M-BASIC-D-BASIC 30 MMOL in DEXTROSE 5%-WATER 250 ML IV ONE (10:30)
[2017-03-10 11:13] VITALS: BP 143/71
[2017-03-10] MEDS ORDERED: HYDR-4061 PO (12:18)
== END 2017-03-10 14:55 | disposition home or self-care (01) | DRG 808 ==
LOC: EMS 14:26 → 5S 17:41 → 5N 03-03 18:20
PROVIDERS: ADMIT Internal Medicine Geriatric Medicine; ATTEND Internal Medicine Geriatric Medicine
PROC: 30233N1 Transfusion of Nonautologous Red Blood Cells into Peripheral Vein, Percutaneous Approach (ICD-10-PCS; principal; 2017-02-26)
DX: D59.1 Other autoimmune hemolytic anemias (principal); I26.99 Other pulmonary embolism without acute cor pulmonale; J18.9 Pneumonia, unspecified organism; C85.90 Non-Hodgkin lymphoma, unspecified, unspecified site; I11.0 Hypertensive heart disease with heart failure; D68.59 Other primary thrombophilia; E83.39 Other disorders of phosphorus metabolism; I50.9 Heart failure, unspecified; I48.91 Unspecified atrial fibrillation; E87.1 Hypo-osmolality and hyponatremia; J98.11 Atelectasis; E56.0 Deficiency of vitamin E; D47.3 Essential (hemorrhagic) thrombocythemia; D63.8 Anemia in other chronic diseases classified elsewhere; R79.89 Other specified abnormal findings of blood chemistry; Z88.1 Allergy status to other antibiotic agents; K21.9 Gastro-esophageal reflux disease without esophagitis; E87.6 Hypokalemia; K80.20 Calculus of gallbladder without cholecystitis without obstruction; D72.829 Elevated white blood cell count, unspecified; F41.9 Anxiety disorder, unspecified; Z79.899 Other long term (current) drug therapy
CPT/HCPCS: 71260; 76700; 82306; 82607; 82746; 83036; 83615; 83735; 83930; 83935; 84100; 84132; 84145; 84156; 84300; 84439; 84443; 84540; 85045; 85379; 86850; 86900; 86901; 86920; 87070; 87107; 87205; 87804; 93005; 93306; 93970; 94640; 94667; 94668; 94799; 96374; 97116; 97162; 97530; 99285; G0238; J0360; J0456; J0696; J1644; J1940; J2405; J3490; J7040; J7050; J7060; P9016